=== PATIENT | female | born 1955 | race African-American/Black ===

== ENCOUNTER 2016-05-24 08:39 | Outpatient (CLI) | payer OTHER | END 2016-05-24 08:40 | disposition home or self-care (01) | LOC: AMBL 08:39 | PROVIDERS: ATTEND Family Medicine | DX: S00.83XA Contusion of other part of head, initial encounter (principal); R11.10 Vomiting, unspecified; R00.0 Tachycardia, unspecified; G91.9 Hydrocephalus, unspecified; Z98.2 Presence of cerebrospinal fluid drainage device; W19.XXXA Unspecified fall, initial encounter ==

== ENCOUNTER 2016-06-12 12:21 | Outpatient (CLI) ==
[2016-06-12 14:41] LABS: IMMATURE RETIC FRACTION 9.2; RETICULOCYTE % 1.63 %
[2016-06-12 15:52] LABS: FERRITIN 64.29 ng/mL (4.63-204.00); FOLATE 4.4 ng/mL (3.1-20.5)
== END 2016-06-12 12:22 | disposition home or self-care (01) ==
LOC: NONPT 12:21
PROVIDERS: ATTEND Family Medicine
DX: G91.9 Hydrocephalus, unspecified (principal); R78.81 Bacteremia; N18.3 Chronic kidney disease, stage 3 (moderate); D64.9 Anemia, unspecified; I10 Essential (primary) hypertension
CPT/HCPCS: 82607; 82728; 82746; 83540; 85045

== ENCOUNTER 2016-08-18 09:04 | Outpatient (CLI) ==
[2016-08-18] MEDS ORDERED: PROLIA SUBCUT STA (09:14)
[2016-08-18 09:27] VITALS: BP 159/82; TEMP 98.4
== END 2016-08-18 09:05 | disposition home or self-care (01) ==
LOC: OPMED 09:04
PROVIDERS: ATTEND Family Medicine
DX: M81.0 Age-related osteoporosis without current pathological fracture (principal)
CPT/HCPCS: 96372

== ENCOUNTER 2017-02-17 11:54 | Outpatient (CLI) | payer OTHER ==
[2017-02-17] MEDS ORDERED: PROLIA SUBCUT STA (13:14)
[2017-02-17 13:22] VITALS: BP 160/82; TEMP 98.2
== END 2017-02-17 11:55 | disposition home or self-care (01) ==
LOC: OPMED 11:54
PROVIDERS: ATTEND Family Medicine
DX: M81.0 Age-related osteoporosis without current pathological fracture (principal)
CPT/HCPCS: 96372

== ENCOUNTER 2017-08-25 11:24 | Outpatient (CLI) | payer OTHER ==
[2017-08-25] MEDS ORDERED: PROLIA SUBCUT STA (11:33)
[2017-08-25 11:35] VITALS: BP 159/75; TEMP 98
== END 2017-08-25 11:25 | disposition home or self-care (01) ==
LOC: OPMED 11:24
PROVIDERS: ATTEND Family Medicine
DX: M81.0 Age-related osteoporosis without current pathological fracture (principal)
CPT/HCPCS: 96372

== ENCOUNTER 2018-01-20 12:29 | Outpatient (CLI) | END 2018-01-20 12:30 | disposition home or self-care (01) | LOC: LAB 12:29 | PROVIDERS: ATTEND Nurse Practitioner | DX: K59.09 Other constipation (principal); R19.4 Change in bowel habit; R19.7 Diarrhea, unspecified; Z80.0 Family history of malignant neoplasm of digestive organs | CPT/HCPCS: 36415; 87493 ==

== ENCOUNTER 2018-03-01 12:58 | Outpatient (CLI) | payer OTHER ==
[2018-03-01] MEDS ORDERED: PROLIA SUBCUT STA (13:06)
[2018-03-01 13:22] VITALS: BP 115/70; TEMP 99.3
== END 2018-03-01 12:59 | disposition home or self-care (01) ==
LOC: OPMED 12:58
PROVIDERS: ATTEND Family Medicine
DX: M81.0 Age-related osteoporosis without current pathological fracture (principal)
CPT/HCPCS: 96372

== ENCOUNTER 2018-08-23 11:08 | Outpatient (CLI) | payer OTHER ==
[2018-08-23 11:34] VITALS: BP 139/61; TEMP 98.2
[2018-08-23] MEDS ORDERED: PROLIA SUBCUT STA (11:41)
== END 2018-08-23 11:09 | disposition home or self-care (01) ==
LOC: OPMED 11:08
PROVIDERS: ATTEND Family Medicine
DX: M81.0 Age-related osteoporosis without current pathological fracture (principal)
CPT/HCPCS: 96372